=== PATIENT | female | born 1930 | race Native Hawaiian/Other Pacific Islander ===

== ENCOUNTER 2016-10-02 08:57 | Inpatient (IN) | payer OTHER ==
[~2016-10-02 08:57] MED LIST: ALPR0.2566 PO; AMLO10TA PO; AMLO5TAB PO; ASA LO-DOSE81 MG PO; CADUET10 MG/10 M PO; CIPR500T PO; CYCL10TA35 PO; DICL1GEL2 TOP; ENALAPRIL10 MG PO; FLEXERIL5 MG PO; GABA300C2 PO; HYDR12.54 PO; LEVO0.08 PO; LEVO0.1T6 PO; LIPITOR20 MG PO; METF500T PO; MIRAPEX0.125 MG PO; NEURONTIN600 MG PO; NEXIUM40 M1 PO; PANT40TA PO; PLETAL50 MG PO; POTA20TA4 PO; POTASSIUM CHLORIDE 25 MEQ PO; PRAMIPEXOLE0.125 MG PO; UNITH DIRECT88 MCG PO
== END 2016-11-02 08:00 | disposition still patient (30) ==
LOC: PAVB 08:57
PROVIDERS: ADMIT Internal Medicine
DX: Z51.89 Encounter for other specified aftercare (principal)

== ENCOUNTER 2016-11-02 09:00 | Inpatient (IN) | payer OTHER | END 2016-12-03 10:53 | disposition still patient (30) | LOC: PAVB 09:00 | PROVIDERS: ADMIT Internal Medicine | DX: Z51.89 Encounter for other specified aftercare (principal) ==

== ENCOUNTER 2016-11-09 17:24 | Outpatient (CLI) | payer OTHER | END 2016-11-09 19:03 | disposition home or self-care (01) | LOC: RAD 17:24 | DX: M25.561 Pain in right knee (principal); R60.0 Localized edema ==

== ENCOUNTER 2016-11-28 08:02 | Outpatient (CLI) | payer OTHER | END 2016-11-28 19:07 | disposition home or self-care (01) | LOC: CT 08:02 | DX: M79.605 Pain in left leg (principal) | CPT/HCPCS: 36415; 82565; 84520; Q9963 ==

== ENCOUNTER 2016-12-03 11:37 | Inpatient (IN) | payer OTHER | END 2016-12-31 12:33 | disposition still patient (30) | LOC: PAVB 11:37 | PROVIDERS: ADMIT Internal Medicine | DX: Z51.89 Encounter for other specified aftercare (principal) ==

== ENCOUNTER 2016-12-05 06:13 | Outpatient (CLI) | payer OTHER ==
[2016-12-05 06:53] LABS: PLATELET COUNT 270 K/uL (152-353)
[2016-12-05 07:23] LABS: POTASSIUM 3.6 mmol/L (3.6-5.2); SODIUM 138 mmol/L (136-145)
== END 2016-12-05 07:13 | disposition home or self-care (01) ==
LOC: LAB 06:13
PROVIDERS: Internal Medicine
DX: E11.9 Type 2 diabetes mellitus without complications (principal); I50.9 Heart failure, unspecified; I10 Essential (primary) hypertension
CPT/HCPCS: 36415; 80053; 80061; 82248; 83036; 84443; 85027

== ENCOUNTER 2016-12-31 12:40 | Inpatient (IN) | payer OTHER | END 2017-01-31 08:09 | disposition still patient (30) | LOC: PAVB 12:40 | PROVIDERS: ADMIT Internal Medicine | DX: Z51.89 Encounter for other specified aftercare (principal) ==

== ENCOUNTER 2017-01-12 13:50 | Outpatient (CLI) | payer OTHER | END 2017-01-12 19:54 | disposition home or self-care (01) | LOC: RAD 13:50 | DX: R05 Cough (principal) ==

== ENCOUNTER 2017-01-31 09:01 | Inpatient (IN) | payer OTHER | END 2017-03-02 08:29 | disposition still patient (30) | LOC: PAVB 09:01 → PAVA 02-23 14:06 | PROVIDERS: ADMIT Internal Medicine | DX: Z51.89 Encounter for other specified aftercare (principal) ==

== ENCOUNTER 2017-02-02 05:17 | Outpatient (CLI) | payer OTHER | END 2017-02-02 06:17 | disposition home or self-care (01) | LOC: LAB 05:17 | DX: E03.8 Other specified hypothyroidism (principal) | CPT/HCPCS: 84443 ==

== ENCOUNTER 2017-02-18 05:41 | Outpatient (CLI) | payer OTHER | END 2017-02-18 19:03 | disposition home or self-care (01) | LOC: LAB 05:41 | DX: Z16.24 Resistance to multiple antibiotics (principal) | CPT/HCPCS: 87081 ==

== ENCOUNTER 2017-02-24 15:35 | Outpatient (CLI) | payer OTHER | END 2017-02-24 22:42 | disposition home or self-care (01) | LOC: RAD 15:35 | DX: M25.511 Pain in right shoulder (principal); M25.561 Pain in right knee ==

== ENCOUNTER 2017-03-02 08:43 | Inpatient (IN) | payer OTHER | END 2017-04-02 08:10 | disposition still patient (30) | LOC: PAVA 08:43 | PROVIDERS: ADMIT Internal Medicine | DX: Z51.89 Encounter for other specified aftercare (principal) ==

== ENCOUNTER 2017-03-02 11:05 | Outpatient (CLI) | payer OTHER | END 2017-03-02 20:00 | disposition home or self-care (01) | LOC: LAB 11:05 | DX: E11.9 Type 2 diabetes mellitus without complications (principal) | CPT/HCPCS: 36415; 83036 ==

== ENCOUNTER 2017-04-02 08:21 | Inpatient (IN) | payer OTHER | END 2017-05-02 14:56 | disposition still patient (30) | LOC: PAVA 08:21 | PROVIDERS: ADMIT Internal Medicine | DX: Z51.89 Encounter for other specified aftercare (principal) ==

== ENCOUNTER 2017-05-02 15:06 | Inpatient (IN) | payer OTHER | END 2017-06-02 08:29 | disposition still patient (30) | LOC: PAVA 15:06 | PROVIDERS: ADMIT Internal Medicine | DX: Z51.89 Encounter for other specified aftercare (principal) ==

== ENCOUNTER 2017-05-27 05:20 | Outpatient (CLI) | payer OTHER | END 2017-05-27 06:20 | disposition home or self-care (01) | LOC: LAB 05:20 | DX: E03.8 Other specified hypothyroidism (principal) | CPT/HCPCS: 84443 ==

== ENCOUNTER 2017-06-02 09:05 | Inpatient (IN) | payer OTHER | END 2017-07-03 08:10 | disposition still patient (30) | LOC: PAVA 09:05 | PROVIDERS: ADMIT Internal Medicine | DX: Z51.89 Encounter for other specified aftercare (principal) ==

== ENCOUNTER 2017-06-03 06:16 | Outpatient (CLI) | payer OTHER ==
[2017-06-03 07:04] LABS: PLATELET COUNT 262 K/uL (152-353)
[2017-06-03 07:25] LABS: POTASSIUM 3.3 mmol/L (3.6-5.2); SODIUM 138 mmol/L (136-145)
== END 2017-06-03 19:39 | disposition home or self-care (01) ==
LOC: LAB 06:16
PROVIDERS: Internal Medicine
DX: I10 Essential (primary) hypertension (principal); R00.2 Palpitations; D50.8 Other iron deficiency anemias; E78.4 Other hyperlipidemia; R73.09 Other abnormal glucose
CPT/HCPCS: 36415; 80053; 80061; 82248; 83036; 84443; 85027

== ENCOUNTER 2017-07-03 08:24 | Inpatient (IN) | payer OTHER | END 2017-08-02 09:07 | disposition still patient (30) | LOC: PAVA 08:24 | PROVIDERS: ADMIT Internal Medicine | DX: Z51.89 Encounter for other specified aftercare (principal) ==

== ENCOUNTER 2017-07-08 08:46 | Outpatient (CLI) | payer OTHER | END 2017-07-08 10:00 | disposition home or self-care (01) | LOC: US 08:46 | DX: R60.0 Localized edema (principal) ==

== ENCOUNTER 2017-08-02 09:19 | Inpatient (IN) | payer OTHER | END 2017-09-02 10:24 | disposition still patient (30) | LOC: PAVA 09:19 | PROVIDERS: ADMIT Internal Medicine ==

== ENCOUNTER 2017-09-02 12:19 | Inpatient (IN) | payer OTHER | END 2017-10-02 08:12 | disposition still patient (30) | LOC: PAVA 12:19 | PROVIDERS: ADMIT Internal Medicine ==

== ENCOUNTER 2017-09-03 05:22 | Outpatient (CLI) | payer OTHER | END 2017-09-03 06:25 | disposition home or self-care (01) | LOC: LAB 05:22 | DX: Z79.01 Long term (current) use of anticoagulants (principal); Z51.81 Encounter for therapeutic drug level monitoring; Z13.1 Encounter for screening for diabetes mellitus; R73.09 Other abnormal glucose | CPT/HCPCS: 83036 ==

== ENCOUNTER 2017-10-02 08:48 | Inpatient (IN) | payer OTHER | END 2017-11-02 08:26 | disposition still patient (30) | LOC: PAVA 08:48 | PROVIDERS: ADMIT Internal Medicine ==

== ENCOUNTER 2017-11-02 08:47 | Inpatient (IN) | payer OTHER | END 2017-12-03 08:30 | disposition still patient (30) | LOC: PAVA 08:47 | PROVIDERS: ADMIT Internal Medicine ==

== ENCOUNTER 2017-12-03 09:20 | Inpatient (IN) | payer OTHER | END 2017-12-31 08:06 | disposition still patient (30) | LOC: PAVA 09:20 | PROVIDERS: ADMIT Internal Medicine ==

== ENCOUNTER 2017-12-07 06:40 | Outpatient (CLI) | payer OTHER ==
[2017-12-07 09:35] LABS: PLATELET COUNT 302 K/uL (152-353)
== END 2017-12-07 20:21 | disposition home or self-care (01) ==
LOC: LAB 06:40
PROVIDERS: Internal Medicine
DX: I10 Essential (primary) hypertension (principal); E11.9 Type 2 diabetes mellitus without complications
CPT/HCPCS: 80053; 80061; 82248; 83036; 84443; 85027

== ENCOUNTER 2017-12-31 08:44 | Inpatient (IN) | payer OTHER | END 2018-01-31 08:00 | disposition still patient (30) | LOC: PAVA 08:44 | PROVIDERS: ADMIT Internal Medicine ==

== ENCOUNTER 2018-01-31 09:00 | Inpatient (IN) | payer OTHER | END 2018-03-02 08:10 | disposition still patient (30) | LOC: PAVA 09:00 | PROVIDERS: ADMIT Internal Medicine ==

== ENCOUNTER 2018-03-02 08:39 | Inpatient (IN) | payer OTHER | END 2018-04-02 08:19 | disposition still patient (30) | LOC: PAVA 08:39 | PROVIDERS: ADMIT Internal Medicine ==

== ENCOUNTER 2018-03-04 07:45 | Outpatient (CLI) | payer OTHER | END 2018-03-04 22:27 | disposition home or self-care (01) | LOC: LAB 07:45 | DX: E11.9 Type 2 diabetes mellitus without complications (principal) | CPT/HCPCS: 36415; 83036 ==

== ENCOUNTER 2018-04-02 08:32 | Inpatient (IN) | payer OTHER | END 2018-05-02 14:14 | disposition still patient (30) | LOC: PAVA 08:32 | PROVIDERS: ADMIT Internal Medicine ==

== ENCOUNTER 2018-05-02 14:27 | Inpatient (IN) | payer OTHER | END 2018-06-02 08:00 | disposition still patient (30) | LOC: PAVA 14:27 | PROVIDERS: ADMIT Internal Medicine ==

== ENCOUNTER 2018-05-19 11:55 | Outpatient (CLI) | payer OTHER ==
[2018-05-19 12:18] LABS: PLATELET COUNT 290 K/uL (152-353)
[2018-05-19 12:54] LABS: POTASSIUM 3.8 mmol/L (3.6-5.2)
== END 2018-05-19 22:42 | disposition home or self-care (01) ==
LOC: LAB 11:55
PROVIDERS: Internal Medicine
DX: R07.89 Other chest pain (principal); R06.09 Other forms of dyspnea; R14.0 Abdominal distension (gaseous)
CPT/HCPCS: 80053; 83880; 84484; 85027

== ENCOUNTER 2018-06-02 09:00 | Inpatient (IN) | payer OTHER | END 2018-07-03 09:56 | disposition still patient (30) | LOC: PAVA 09:00 | PROVIDERS: ADMIT Internal Medicine ==

== ENCOUNTER 2018-06-07 05:54 | Outpatient (CLI) | payer OTHER ==
[2018-06-07 08:09] LABS: PLATELET COUNT 297 K/uL (152-353)
[2018-06-07 08:45] LABS: POTASSIUM 3.7 mmol/L (3.6-5.2)
== END 2018-06-07 19:33 | disposition home or self-care (01) ==
LOC: LAB 05:54
PROVIDERS: Internal Medicine
DX: E11.9 Type 2 diabetes mellitus without complications (principal); I10 Essential (primary) hypertension
CPT/HCPCS: 36415; 80053; 80061; 82248; 83036; 84443; 85027

== ENCOUNTER 2018-07-03 10:05 | Inpatient (IN) | payer OTHER | END 2018-08-02 08:39 | disposition still patient (30) | LOC: PAVA 10:05 | PROVIDERS: ADMIT Internal Medicine ==

== ENCOUNTER 2018-08-02 08:51 | Inpatient (IN) | payer OTHER | END 2018-09-02 08:09 | disposition still patient (30) | LOC: PAVA 08:51 | PROVIDERS: ADMIT Internal Medicine ==

== ENCOUNTER 2018-09-02 04:40 | Outpatient (CLI) | payer OTHER | END 2018-09-02 21:48 | disposition home or self-care (01) | LOC: LAB 04:40 | DX: E11.9 Type 2 diabetes mellitus without complications (principal) | CPT/HCPCS: 83036 ==

== ENCOUNTER 2018-09-02 08:21 | Inpatient (IN) | payer OTHER | END 2018-10-02 08:04 | disposition still patient (30) | LOC: PAVA 08:21 | PROVIDERS: ADMIT Internal Medicine ==

== ENCOUNTER 2018-09-07 14:20 | Outpatient (CLI) | payer OTHER | END 2018-09-07 22:21 | disposition home or self-care (01) | LOC: RAD 14:20 | DX: M25.562 Pain in left knee (principal); M25.561 Pain in right knee ==

== ENCOUNTER 2018-10-02 08:14 | Inpatient (IN) | payer OTHER | END 2018-11-02 10:20 | disposition still patient (30) | LOC: PAVA 08:14 | PROVIDERS: ADMIT Internal Medicine ==

== ENCOUNTER 2018-10-11 09:03 | Outpatient (CLI) | payer OTHER | END 2018-10-11 22:46 | disposition home or self-care (01) | LOC: RAD 09:03 | DX: Z78.0 Asymptomatic menopausal state (principal) ==

== ENCOUNTER 2018-11-02 10:33 | Inpatient (IN) | payer OTHER | END 2018-12-03 14:15 | disposition still patient (30) | LOC: PAVA 10:33 | PROVIDERS: ADMIT Internal Medicine ==

== ENCOUNTER 2018-12-03 14:33 | Inpatient (IN) | payer OTHER | END 2018-12-31 09:13 | disposition still patient (30) | LOC: PAVA 14:33 | PROVIDERS: ADMIT Internal Medicine ==

== ENCOUNTER 2018-12-06 06:36 | Outpatient (CLI) | payer OTHER ==
[2018-12-06 08:39] LABS: PLATELET COUNT 287 K/uL (152-353)
[2018-12-06 10:02] LABS: POTASSIUM 3.6 mmol/L (3.6-5.2)
== END 2018-12-06 20:44 | disposition home or self-care (01) ==
LOC: LAB 06:36
PROVIDERS: Internal Medicine
DX: I10 Essential (primary) hypertension (principal); E11.9 Type 2 diabetes mellitus without complications; Z79.899 Other long term (current) drug therapy
CPT/HCPCS: 36415; 80053; 80061; 82248; 83036; 84443; 85027

== ENCOUNTER 2018-12-31 09:35 | Inpatient (IN) | payer OTHER | END 2019-01-31 07:53 | disposition still patient (30) | LOC: PAVA 09:35 | PROVIDERS: ADMIT Internal Medicine ==

== ENCOUNTER 2019-01-31 08:26 | Inpatient (IN) | payer OTHER | END 2019-03-02 09:30 | disposition still patient (30) | LOC: PAVA 08:26 | PROVIDERS: ADMIT Internal Medicine ==

== ENCOUNTER 2019-02-02 16:06 | Outpatient (CLI) | payer OTHER | END 2019-02-02 20:10 | disposition home or self-care (01) | LOC: LAB 16:06 | DX: R53.83 Other fatigue (principal) | CPT/HCPCS: 81000 ==

== ENCOUNTER 2019-03-02 10:35 | Inpatient (IN) | payer OTHER | END 2019-04-02 08:12 | disposition still patient (30) | LOC: PAVA 10:35 | PROVIDERS: ADMIT Internal Medicine | DX: Z51.89 Encounter for other specified aftercare (principal) ==

== ENCOUNTER 2019-03-03 04:04 | Outpatient (CLI) | payer OTHER | END 2019-03-03 19:45 | LOC: LAB 04:04 | DX: E11.9 Type 2 diabetes mellitus without complications (principal) | CPT/HCPCS: 83036 ==

== ENCOUNTER 2019-04-02 08:22 | Inpatient (IN) | payer OTHER | END 2019-05-02 08:26 | disposition still patient (30) | LOC: PAVA 08:22 | PROVIDERS: ADMIT Internal Medicine ==

== ENCOUNTER 2019-05-02 08:52 | Inpatient (IN) | payer OTHER | END 2019-06-02 09:03 | disposition still patient (30) | LOC: PAVA 08:52 | PROVIDERS: ADMIT Internal Medicine ==

== ENCOUNTER 2019-06-02 09:40 | Inpatient (IN) | payer OTHER | END 2019-07-03 15:57 | disposition still patient (30) | LOC: PAVA 09:40 | PROVIDERS: ADMIT Internal Medicine ==

== ENCOUNTER 2019-06-07 05:00 | Outpatient (CLI) | payer OTHER ==
[2019-06-07 10:07] LABS: POTASSIUM 3.7 mmol/L (3.6-5.2)
[2019-06-07 11:00] LABS: PLATELET COUNT 294 K/uL (152-353)
== END 2019-06-07 23:12 | disposition home or self-care (01) ==
LOC: LAB 05:00
PROVIDERS: Internal Medicine
DX: I10 Essential (primary) hypertension (principal); E03.8 Other specified hypothyroidism; E11.9 Type 2 diabetes mellitus without complications
CPT/HCPCS: 36415; 80053; 80061; 82248; 83036; 84443; 85027

== ENCOUNTER 2019-07-03 16:17 | Inpatient (IN) | payer OTHER | END 2019-08-02 08:04 | disposition still patient (30) | LOC: PAVA 16:17 | PROVIDERS: ADMIT Internal Medicine ==

== ENCOUNTER 2019-08-02 08:43 | Inpatient (IN) | payer OTHER | END 2019-09-02 08:36 | disposition still patient (30) | LOC: PAVA 08:43 | PROVIDERS: ADMIT Internal Medicine ==

== ENCOUNTER 2019-09-02 05:22 | Outpatient (CLI) | payer OTHER | END 2019-09-02 22:10 | disposition home or self-care (01) | LOC: LAB 05:22 | DX: E11.9 Type 2 diabetes mellitus without complications (principal) | CPT/HCPCS: 83036 ==

== ENCOUNTER 2019-09-02 10:48 | Inpatient (IN) | payer OTHER | END 2019-10-02 08:00 | disposition still patient (30) | LOC: PAVA 10:48 | PROVIDERS: ADMIT Internal Medicine ==

== ENCOUNTER 2019-10-02 08:30 | Inpatient (IN) | payer OTHER | END 2019-11-02 07:59 | disposition still patient (30) | LOC: PAVA 08:30 | PROVIDERS: ADMIT Internal Medicine ==

== ENCOUNTER 2019-11-02 08:10 | Inpatient (IN) | payer OTHER | END 2019-12-03 09:30 | disposition still patient (30) | LOC: PAVA 08:10 | PROVIDERS: ADMIT Internal Medicine ==

== ENCOUNTER 2019-12-03 09:41 | Inpatient (IN) | payer OTHER | END 2020-01-01 12:44 | disposition still patient (30) | LOC: PAVA 09:41 | PROVIDERS: ADMIT Internal Medicine ==

== ENCOUNTER 2019-12-06 04:58 | Outpatient (CLI) | payer OTHER ==
[2019-12-06 06:09] LABS: PLATELET COUNT 270 K/uL (152-353)
[2019-12-06 06:42] LABS: POTASSIUM 3.9 mmol/L (3.6-5.2)
== END 2019-12-06 22:16 | disposition home or self-care (01) ==
LOC: LAB 04:58
PROVIDERS: Internal Medicine
DX: E11.9 Type 2 diabetes mellitus without complications (principal); I10 Essential (primary) hypertension; E03.8 Other specified hypothyroidism
CPT/HCPCS: 80053; 80061; 82248; 83036; 84443; 85027

== ENCOUNTER 2020-01-01 12:55 | Inpatient (IN) | payer OTHER | END 2020-02-01 08:57 | disposition still patient (30) | LOC: PAVA 12:55 | PROVIDERS: ADMIT Internal Medicine ==

== ENCOUNTER 2020-02-01 09:16 | Inpatient (IN) | payer OTHER | END 2020-03-02 08:01 | disposition still patient (30) | LOC: PAVA 09:16 | PROVIDERS: ADMIT Internal Medicine | CPT/HCPCS: 87635; U0002 ==

== ENCOUNTER 2020-03-02 07:09 | Outpatient (CLI) | payer OTHER | END 2020-03-02 21:26 | disposition home or self-care (01) | LOC: LAB 07:09 | DX: E11.9 Type 2 diabetes mellitus without complications (principal) | CPT/HCPCS: 36415; 83036 ==

== ENCOUNTER 2020-03-02 08:30 | Inpatient (IN) | payer OTHER | END 2020-04-02 08:10 | disposition still patient (30) | LOC: PAVA 08:30 | PROVIDERS: ADMIT Internal Medicine | CPT/HCPCS: 87635; U0002 ==

== ENCOUNTER 2020-04-02 08:21 | Inpatient (IN) | payer OTHER | END 2020-05-02 08:25 | disposition still patient (30) | LOC: PAVA 08:21 | PROVIDERS: ADMIT Internal Medicine | CPT/HCPCS: 87635; U0002 ==

== ENCOUNTER 2020-05-02 08:48 | Inpatient (IN) | payer OTHER | END 2020-06-02 08:22 | disposition still patient (30) | LOC: PAVA 08:48 | PROVIDERS: ADMIT Internal Medicine | CPT/HCPCS: 87635; U0002 ==

== ENCOUNTER 2020-06-02 08:48 | Inpatient (IN) | payer OTHER | END 2020-07-03 10:39 | disposition still patient (30) | LOC: PAVA 08:48 | PROVIDERS: ADMIT Internal Medicine | CPT/HCPCS: 87635; U0002 ==

== ENCOUNTER 2020-06-04 07:44 | Outpatient (CLI) | payer OTHER ==
[2020-06-04 08:20] LABS: PLATELET COUNT 299 K/uL (152-353)
[2020-06-04 08:28] LABS: POTASSIUM 3.3 mmol/L (3.6-5.2)
== END 2020-06-04 22:34 | disposition home or self-care (01) ==
LOC: LAB 07:44
PROVIDERS: Internal Medicine
DX: E11.9 Type 2 diabetes mellitus without complications (principal); E03.8 Other specified hypothyroidism; I11.0 Hypertensive heart disease with heart failure
CPT/HCPCS: 80053; 80061; 82248; 83036; 84443; 85027

== ENCOUNTER 2020-06-11 05:40 | Outpatient (CLI) | payer OTHER | END 2020-06-11 19:12 | disposition home or self-care (01) | LOC: LAB 05:40 | DX: E61.2 Magnesium deficiency (principal) | CPT/HCPCS: 83735 ==

== ENCOUNTER 2020-07-03 11:16 | Inpatient (IN) | payer OTHER | END 2020-08-02 09:27 | disposition still patient (30) | LOC: PAVA 11:16 | PROVIDERS: ADMIT Internal Medicine ==

== ENCOUNTER 2020-08-02 10:45 | Inpatient (IN) | payer OTHER | END 2020-09-02 08:00 | disposition still patient (30) | LOC: PAVA 10:45 | PROVIDERS: ADMIT Internal Medicine ==

== ENCOUNTER 2020-09-02 09:00 | Inpatient (IN) | payer OTHER | END 2020-10-02 08:34 | disposition still patient (30) | LOC: PAVA 09:00 | PROVIDERS: ADMIT Internal Medicine; ATTEND Internal Medicine ==

== ENCOUNTER 2020-09-04 12:29 | Outpatient (CLI) | payer OTHER | END 2020-09-04 23:36 | disposition home or self-care (01) | LOC: LAB 12:29 | DX: E11.9 Type 2 diabetes mellitus without complications (principal) | CPT/HCPCS: 83036 ==

== ENCOUNTER 2020-09-04 20:43 | Outpatient (CLI) | payer OTHER | END 2020-09-04 23:41 | disposition home or self-care (01) | LOC: LAB 20:43 | DX: E03.8 Other specified hypothyroidism (principal) | CPT/HCPCS: 36415; 84443 ==

== ENCOUNTER 2020-10-02 08:56 | Inpatient (IN) | payer OTHER | END 2020-11-02 08:27 | disposition still patient (30) | LOC: PAVA 08:56 | PROVIDERS: ADMIT Internal Medicine; ATTEND Internal Medicine ==

== ENCOUNTER 2020-10-15 14:08 | Outpatient (CLI) | payer OTHER | END 2020-10-15 21:45 | disposition home or self-care (01) | LOC: RAD 14:08 | PROVIDERS: ATTEND Internal Medicine | DX: M81.0 Age-related osteoporosis without current pathological fracture (principal) ==

== ENCOUNTER 2020-11-02 08:42 | Inpatient (IN) | payer OTHER | END 2020-12-03 13:10 | disposition still patient (30) | LOC: PAVA 08:42 | PROVIDERS: ADMIT Internal Medicine; ATTEND Internal Medicine ==

== ENCOUNTER 2020-12-03 09:02 | Outpatient (CLI) | payer OTHER ==
[2020-12-03 09:22] LABS: PLATELET COUNT 322 K/uL (152-353)
[2020-12-03 09:42] LABS: POTASSIUM 4.2 mmol/L (3.6-5.2)
== END 2020-12-03 19:16 | disposition home or self-care (01) ==
LOC: LAB 09:02
PROVIDERS: ATTEND Internal Medicine
DX: E11.9 Type 2 diabetes mellitus without complications (principal); E03.8 Other specified hypothyroidism; I50.9 Heart failure, unspecified; I11.0 Hypertensive heart disease with heart failure
CPT/HCPCS: 80053; 80061; 82248; 83036; 84443; 85027

== ENCOUNTER 2020-12-03 14:02 | Inpatient (IN) | payer OTHER | END 2020-12-31 08:39 | disposition still patient (30) | LOC: PAVA 14:02 | PROVIDERS: ADMIT Internal Medicine; ATTEND Internal Medicine ==

== ENCOUNTER 2020-12-31 08:48 | Inpatient (IN) | payer OTHER | END 2021-01-31 08:32 | disposition still patient (30) | LOC: PAVA 08:48 | PROVIDERS: ADMIT Internal Medicine; ATTEND Internal Medicine ==

== ENCOUNTER 2021-01-31 09:33 | Inpatient (IN) | payer OTHER | END 2021-03-02 11:56 | disposition still patient (30) | LOC: PAVA 09:33 | PROVIDERS: ADMIT Internal Medicine; ATTEND Internal Medicine ==

== ENCOUNTER 2021-02-10 20:47 | Emergency (ER) | payer OTHER ==
[~2021-02-10] VITALS: Ht 160 cm; Wt 76.2 kg
[2021-02-10 23:07] VITALS: BP 132/63; TEMP 98.2
== END 2021-02-10 23:15 ==
LOC: ED 20:47
PROC: 0HQ0XZZ Repair Scalp Skin, External Approach (ICD-10-PCS; principal; 2021-02-10)
DX: S01.01XA Laceration without foreign body of scalp, initial encounter (principal); S00.03XA Contusion of scalp, initial encounter; S09.8XXA Other specified injuries of head, initial encounter; W18.39XA Other fall on same level, initial encounter; Y92.128 Other place in nursing home as the place of occurrence of the external cause
CPT/HCPCS: 96372; 99283; J1885; J7040

== ENCOUNTER 2021-03-02 10:10 | Outpatient (CLI) | payer OTHER | END 2021-03-02 19:29 | disposition home or self-care (01) | LOC: LAB 10:10 | PROVIDERS: ATTEND Internal Medicine | DX: E11.9 Type 2 diabetes mellitus without complications (principal) | CPT/HCPCS: 83036 ==

== ENCOUNTER 2021-03-02 12:04 | Inpatient (IN) | payer OTHER | END 2021-04-02 13:08 | disposition still patient (30) | LOC: PAVA 12:04 | PROVIDERS: ADMIT Internal Medicine; ATTEND Internal Medicine ==

== ENCOUNTER 2021-04-02 14:13 | Inpatient (IN) | payer OTHER | END 2021-05-02 08:00 | disposition still patient (30) | LOC: PAVA 14:13 | PROVIDERS: ADMIT Internal Medicine; ATTEND Internal Medicine ==

== ENCOUNTER 2021-05-02 09:00 | Inpatient (IN) | payer OTHER | END 2021-06-02 08:00 | disposition still patient (30) | LOC: PAVA 09:00 | PROVIDERS: ADMIT Internal Medicine; ATTEND Internal Medicine ==

== ENCOUNTER 2021-06-02 09:00 | Inpatient (IN) | payer OTHER | END 2021-07-03 09:07 | disposition still patient (30) | LOC: PAVA 09:00 | PROVIDERS: ADMIT Internal Medicine; ATTEND Internal Medicine ==

== ENCOUNTER 2021-06-03 09:39 | Outpatient (CLI) | payer OTHER ==
[2021-06-03 10:44] LABS: PLATELET COUNT 95 K/uL (152-353)
[2021-06-03 11:22] LABS: POTASSIUM 4.1 mmol/L (3.6-5.2)
== END 2021-06-03 22:39 | disposition home or self-care (01) ==
LOC: LAB 09:39
PROVIDERS: ATTEND Internal Medicine
DX: E11.9 Type 2 diabetes mellitus without complications (principal); I50.9 Heart failure, unspecified; E03.8 Other specified hypothyroidism; I11.0 Hypertensive heart disease with heart failure
CPT/HCPCS: 80053; 80061; 82248; 83036; 84443; 85027

== ENCOUNTER 2021-07-03 09:19 | Inpatient (IN) | payer OTHER | END 2021-08-02 08:10 | disposition still patient (30) | LOC: PAVA 09:19 | PROVIDERS: ADMIT Internal Medicine; ATTEND Internal Medicine ==

== ENCOUNTER 2021-09-02 07:13 | Outpatient (CLI) | payer OTHER | END 2021-09-02 19:16 | disposition home or self-care (01) | LOC: LAB 07:13 | PROVIDERS: ATTEND Internal Medicine | DX: E11.9 Type 2 diabetes mellitus without complications (principal) | CPT/HCPCS: 36415; 83036 ==

== ENCOUNTER 2021-10-02 08:57 | Inpatient (IN) | payer OTHER | END 2021-11-02 07:55 | disposition still patient (30) | LOC: PAVA 08:57 | PROVIDERS: ADMIT Internal Medicine; ATTEND Internal Medicine ==

== ENCOUNTER 2021-11-02 08:05 | Inpatient (IN) | payer OTHER | END 2021-12-03 08:43 | disposition still patient (30) | LOC: PAVA 08:05 | PROVIDERS: ADMIT Internal Medicine; ATTEND Internal Medicine ==

== ENCOUNTER 2021-12-03 09:56 | Inpatient (IN) | payer OTHER | END 2021-12-31 08:53 | disposition still patient (30) | LOC: PAVA 09:56 | PROVIDERS: ADMIT Internal Medicine; ATTEND Internal Medicine ==

== ENCOUNTER → 2021-12-04 | Outpatient (CLI) | payer OTHER ==
[2021-12-04 10:30] LABS: PLATELET COUNT 79 K/uL (152-353)
[2021-12-04 10:32] LABS: POTASSIUM 4.3 mmol/L (3.6-5.2)
== END ==
LOC: LAB 08:30
PROVIDERS: ATTEND Internal Medicine
DX: E11.9 Type 2 diabetes mellitus without complications (principal); I10 Essential (primary) hypertension
CPT/HCPCS: 80053; 80061; 82248; 83036; 84443; 85027

== ENCOUNTER 2021-12-31 10:49 | Inpatient (IN) | payer OTHER | END 2022-01-31 08:09 | disposition still patient (30) | LOC: PAVA 10:49 | PROVIDERS: ADMIT Internal Medicine; ATTEND Internal Medicine ==

== ENCOUNTER 2022-01-31 08:27 | Inpatient (IN) | payer OTHER | END 2022-03-02 10:49 | disposition still patient (30) | LOC: PAVA 08:27 | PROVIDERS: ADMIT Internal Medicine; ATTEND Internal Medicine ==

== ENCOUNTER 2022-03-01 22:42 | Outpatient (CLI) | payer OTHER | END 2022-03-01 23:32 | disposition home or self-care (01) | LOC: LAB 22:42 | PROVIDERS: ATTEND Internal Medicine | DX: N39.0 Urinary tract infection, site not specified (principal) | CPT/HCPCS: 81000; 87077; 87086; 87088; 87186 ==

== ENCOUNTER 2022-03-02 03:34 | Inpatient (IN) | payer OTHER | END 2022-04-02 09:24 | disposition still patient (30) | LOC: PAVA 03:34 | PROVIDERS: ADMIT Internal Medicine; ATTEND Internal Medicine ==

== ENCOUNTER 2022-03-03 07:36 | Outpatient (CLI) | payer OTHER | END 2022-03-03 18:52 | disposition home or self-care (01) | LOC: LAB 07:36 | PROVIDERS: ATTEND Internal Medicine | DX: E11.9 Type 2 diabetes mellitus without complications (principal) | CPT/HCPCS: 83036 ==

== ENCOUNTER 2022-04-02 11:14 | Inpatient (IN) | payer OTHER | END 2022-05-02 09:00 | disposition still patient (30) | LOC: PAVA 11:14 | PROVIDERS: ADMIT Internal Medicine; ATTEND Internal Medicine ==

== ENCOUNTER 2022-05-02 10:25 | Inpatient (IN) | payer OTHER | END 2022-06-02 09:23 | disposition still patient (30) | LOC: PAVA 10:25 | PROVIDERS: ADMIT Internal Medicine; ATTEND Internal Medicine ==

== ENCOUNTER 2022-06-02 10:59 | Outpatient (CLI) | payer OTHER ==
[2022-06-02 11:49] LABS: PLATELET COUNT 234 K/uL (152-353)
[2022-06-02 11:54] LABS: POTASSIUM 4.3 mmol/L (3.6-5.2)
== END 2022-06-02 18:59 | disposition home or self-care (01) ==
LOC: LAB 10:59
PROVIDERS: ATTEND Internal Medicine
DX: E03.8 Other specified hypothyroidism (principal); E11.40 Type 2 diabetes mellitus with diabetic neuropathy, unspecified
CPT/HCPCS: 80053; 80061; 82248; 83036; 84443; 85027

== ENCOUNTER 2022-06-02 14:13 | Inpatient (IN) | payer OTHER | END 2022-07-03 08:57 | disposition still patient (30) | LOC: PAVA 14:13 | PROVIDERS: ADMIT Internal Medicine; ATTEND Internal Medicine ==

== ENCOUNTER 2022-06-04 23:03 | Outpatient (CLI) | payer OTHER | END 2022-06-04 23:48 | disposition home or self-care (01) | LOC: LAB 23:03 | PROVIDERS: ATTEND Internal Medicine | DX: D51.0 Vitamin B12 deficiency anemia due to intrinsic factor deficiency (principal) | CPT/HCPCS: 82607; 82746 ==

== ENCOUNTER 2022-06-05 16:57 | Outpatient (CLI) | payer OTHER | END 2022-06-05 20:58 | disposition home or self-care (01) | LOC: LAB 16:57 | PROVIDERS: ATTEND Internal Medicine | DX: R79.89 Other specified abnormal findings of blood chemistry (principal) | CPT/HCPCS: 86340 ==

== ENCOUNTER 2022-07-03 09:56 | Inpatient (IN) | payer OTHER | END 2022-08-02 10:18 | disposition still patient (30) | LOC: PAVA 09:56 | PROVIDERS: ADMIT Internal Medicine Endocrinology, Diabetes & Metabolism; ATTEND Internal Medicine Endocrinology, Diabetes & Metabolism ==

== ENCOUNTER 2022-08-02 11:58 | Inpatient (IN) | payer OTHER | END 2022-09-02 09:44 | disposition still patient (30) | LOC: PAVA 11:58 | PROVIDERS: ADMIT Internal Medicine Endocrinology, Diabetes & Metabolism; ATTEND Internal Medicine Endocrinology, Diabetes & Metabolism ==

== ENCOUNTER 2022-09-02 10:06 | Inpatient (IN) | payer OTHER | END 2022-10-02 10:04 | disposition still patient (30) | LOC: PAVA 10:06 | PROVIDERS: ADMIT Internal Medicine Endocrinology, Diabetes & Metabolism; ATTEND Internal Medicine Endocrinology, Diabetes & Metabolism ==

== ENCOUNTER → 2022-09-02 | Outpatient (CLI) | payer OTHER | LOC: LAB 15:41 | PROVIDERS: ATTEND Internal Medicine Endocrinology, Diabetes & Metabolism | DX: E11.9 Type 2 diabetes mellitus without complications (principal); E03.8 Other specified hypothyroidism | CPT/HCPCS: 83036; 84443 ==

== ENCOUNTER 2022-10-02 10:17 | Inpatient (IN) | payer OTHER | END 2022-11-02 10:27 | disposition still patient (30) | LOC: PAVA 10:17 | PROVIDERS: ADMIT Internal Medicine Endocrinology, Diabetes & Metabolism; ATTEND Internal Medicine Endocrinology, Diabetes & Metabolism ==

== ENCOUNTER 2022-10-21 10:55 | Outpatient (CLI) | payer OTHER | END 2022-10-21 19:03 | disposition home or self-care (01) | LOC: RAD 10:55 | PROVIDERS: ATTEND Internal Medicine Endocrinology, Diabetes & Metabolism | DX: Z13.820 Encounter for screening for osteoporosis (principal); M81.0 Age-related osteoporosis without current pathological fracture ==